=== PATIENT | female | born 1935 | race Caucasian/White ===

== ENCOUNTER 2018-05-22 21:04 | Inpatient (IN) | payer MEDICARE, OTHER ==
[2018-05-22] MEDS: morphine 4 MG/ML VIAL IV (22:24)
[2018-05-22] MEDS: ONDANSETRON 4 MG INJ IV (22:24)
[2018-05-22 22:29] LABS: ADD MAN DIFF? NO
[2018-05-22 22:30] LABS: BASOPHILS % 0.2 % (0.0-2.0); HEMATOCRIT 26.3 % (37.0-47.0); HEMOGLOBIN 7.9 g/dl (12.0-16.0); LYMPHOCYTES # 0.6 10^3/ul (0.8-2.9); LYMPHOCYTES % 3.6 % (15.0-51.0); MEAN CORPUSCULAR HEMOGLOBIN 25.7 pg (29.0-33.0); MEAN CORPUSCULAR VOLUME 85.7 fl (82.0-101.0); MEAN PLATELET VOLUME 9.9 fl (7.4-10.4); MONOCYTE # 0.7 10^3/ul (0.3-0.9); NEUTROPHIL # 15.4 10^3/ul (1.6-7.5); NEUTROPHILS % 91.5 % (39.0-77.0); PLATELET COUNT 639 10^3/UL (140-415); RED BLOOD COUNT 3.07 10^6/ul (4.20-5.40); RED CELL DISTRIBUTION WIDTH 14.8 % (11.5-14.5)
[2018-05-22 22:30] LABS: WHITE BLOOD COUNT 16.8 10^3/ul (4.8-10.8)
[2018-05-22 22:45] LABS: INR 1.02; PROTIME 13.5 Sec (11.9-14.9); PT RATIO 1.1
[2018-05-22 22:46] LABS: PARTIAL THROMBOPLASTIN TIME 40.8 Sec (25.0-35.0)
[2018-05-22 22:50] LABS: ALANINE AMINOTRANSFERASE 18 IU/L (13-69); ALBUMIN 3.9 g/dl (3.3-4.9); ALBUMIN/GLOBULIN RATIO 0.86; ALKALINE PHOSPHATASE 101 IU/L (42-121); ANION GAP 22 (8-16); ASPARTATE AMINO TRANSFERASE 11 IU/L (15-46); BILIRUBIN,INDIRECT 0.6 mg/dl (0-1.1); BILIRUBIN,TOTAL 0.6 mg/dl (0.2-1.3); BLOOD UREA NITROGEN 32 mg/dl (7-20); CALCIUM 9.8 mg/dl (8.4-10.2); CARBON DIOXIDE 16 mmol/L (21-31); CHLORIDE 103 mmol/L (97-110); CREATININE 2.02 mg/dl (0.44-1.00); GLUCOSE 220 mg/dl (70-220); POTASSIUM 5.5 mmol/L (3.5-5.1); SODIUM 135 mmol/L (135-144); TOTAL PROTEIN 8.4 g/dl (6.1-8.1)
[2018-05-22 23:02] LABS: TROPONIN-I 0.136 ng/ml (0.000-0.120)
[2018-05-23] MEDS ORDERED: ACETAMINOPHEN 325 MG TAB PO
[2018-05-23 00:05] LABS: ADD UMIC YES; UR ASCORBIC ACID NEGATIVE (NEGATIVE); UR BILIRUBIN (Dip) NEGATIVE (NEGATIVE); UR BLOOD (Dip) 2+ mg/dL (NEGATIVE); UR CLARITY CLEAR (CLEAR); UR COLOR YELLOW (YELLOW); UR GLUCOSE (Dip) 2+ mg/dL (NEGATIVE); UR KETONES (Dip) 1+ mg/dL (NEGATIVE); UR LEUKOCYTE ESTERASE (Dip) NEGATIVE Leu/ul (NEGATIVE); UR NITRITE (Dip) NEGATIVE (NEGATIVE); UR RBC 2 /HPF (0-5); UR SPECIFIC GRAVITY (Dip) 1.013 (1.003-1.030); UR TOTAL PROTEIN (Dip) 1+ mg/dl (NEGATIVE); UR UROBILINOGEN (Dip) NEGATIVE (NEGATIVE); UR WBC 1 /HPF (0-5)
[2018-05-23] MEDS: ASPIRIN 325 MG TAB PO (00:18)
[2018-05-23] MEDS ORDERED: NACL 0.9% 3 ML SYG IV (00:30)
[2018-05-23] MEDS ORDERED: NITROGLYCERIN (SL) 0.4 MG TAB SL (00:30)
[2018-05-23] MEDS ORDERED: ONDANSETRON 4 MG INJ IV ×2 (00:30)
[2018-05-23] MEDS ORDERED: GLUCOSE GEL 15 GRAM TUBE BUCCAL (01:00)
[2018-05-23] MEDS ORDERED: GLUCAGON 1 MG INJ IM (01:00)
[2018-05-23] MEDS ORDERED: GLUCOSE GEL 15 GRAM TUBE PO ×2 (01:00)
[2018-05-23] MEDS ORDERED: DEXTROSE 50% 50 ML SYRINGE IV ×2 (01:00)
[2018-05-23] MEDS: DEXTROSE 5%-0.45% NACL 1,000 ML IV ×2 (01:26→14:41)
[2018-05-23 01:41] LABS: CREATINE KINASE 118 IU/L (23-200)
[2018-05-23] MEDS: morphine 2 MG INJ IV ×2 (01:50→06:26)
[2018-05-23 01:53] LABS: CK INDEX 1.7; CK-MB 1.95 ng/ml (0.0-2.4)
[2018-05-23 01:56] LABS: TROPONIN-I 0.233 ng/ml (0.000-0.120)
[2018-05-23] MEDS: ACCU-CHEK XX (02:00)
[2018-05-23] MEDS: CEFTRIAXONE 1 GM/50 ML (PMX) 50 ML IVPB ×3 (02:30→21:10)
[2018-05-23 03:40] LABS: ADD MAN DIFF? NO
[2018-05-23 04:01] LABS: INR 1.04; PROTIME 13.7 Sec (11.9-14.9); PT RATIO 1.1
[2018-05-23 04:02] LABS: ABNORMAL IP MESSAGE 1; BASOPHILS % 0.2 % (0.0-2.0); HEMATOCRIT 22.2 % (37.0-47.0); LYMPHOCYTES # 0.7 10^3/ul (0.8-2.9); LYMPHOCYTES % 4.9 % (15.0-51.0); MEAN CORPUSCULAR HEMOGLOBIN 25.9 pg (29.0-33.0); MEAN CORPUSCULAR HGB CONC 30.2 g/dl (32.0-37.0); MEAN CORPUSCULAR VOLUME 85.7 fl (82.0-101.0); MEAN PLATELET VOLUME 10.8 fl (7.4-10.4); MONOCYTE # 0.6 10^3/ul (0.3-0.9); MONOCYTES % 4.2 % (0.0-11.0); NEUTROPHIL # 13.2 10^3/ul (1.6-7.5); NEUTROPHILS % 89.7 % (39.0-77.0); PARTIAL THROMBOPLASTIN TIME 35.2 Sec (25.0-35.0); PLATELET COUNT 480 10^3/UL (140-415); RED BLOOD COUNT 2.59 10^6/ul (4.20-5.40); RED CELL DISTRIBUTION WIDTH 14.7 % (11.5-14.5)
[2018-05-23 04:02] LABS: WHITE BLOOD COUNT 14.7 10^3/ul (4.8-10.8)
[2018-05-23] MEDS: HEPARIN 1000 UNITS/ML 10 ML INJ IV ×2 (04:09→04:15)
[2018-05-23] MEDS: HEPARIN 25000 UNITS/250 ML 250 ML IV (04:11)
[2018-05-23 04:32] LABS: HEMOGLOBIN 6.7 g/dl (12.0-16.0); POSITIVE DIFF @See below
[2018-05-23 04:33] LABS: PATH REVIEW? YES-PATH TO CONFIRM
[2018-05-23 07:04] LABS: ADD MAN DIFF? NO
[2018-05-23 07:12] LABS: WHITE BLOOD COUNT 14.2 10^3/ul (4.8-10.8)
[2018-05-23 07:12] LABS: ABNORMAL IP MESSAGE 1; BASOPHILS % 0.3 % (0.0-2.0); HEMATOCRIT 22.4 % (37.0-47.0); LYMPHOCYTES # 1.1 10^3/ul (0.8-2.9); LYMPHOCYTES % 7.8 % (15.0-51.0); MEAN CORPUSCULAR HEMOGLOBIN 25.7 pg (29.0-33.0); MEAN CORPUSCULAR HGB CONC 29.9 g/dl (32.0-37.0); MEAN CORPUSCULAR VOLUME 85.8 fl (82.0-101.0); MEAN PLATELET VOLUME 11.1 fl (7.4-10.4); MONOCYTE # 0.6 10^3/ul (0.3-0.9); MONOCYTES % 4.5 % (0.0-11.0); NEUTROPHIL # 12.3 10^3/ul (1.6-7.5); NEUTROPHILS % 86.8 % (39.0-77.0); PLATELET COUNT 559 10^3/UL (140-415); RED BLOOD COUNT 2.61 10^6/ul (4.20-5.40)
[2018-05-23 07:25] LABS: HEMOGLOBIN 6.7 g/dl (12.0-16.0); POSITIVE DIFF @See below
[2018-05-23 07:34] LABS: ALANINE AMINOTRANSFERASE 15 IU/L (13-69); ALBUMIN 3.5 g/dl (3.3-4.9); ALBUMIN/GLOBULIN RATIO 1.09; ALKALINE PHOSPHATASE 83 IU/L (42-121); ANION GAP 26 (8-16); ASPARTATE AMINO TRANSFERASE 10 IU/L (15-46); BILIRUBIN,INDIRECT 0.3 mg/dl (0-1.1); BILIRUBIN,TOTAL 0.3 mg/dl (0.2-1.3); BLOOD UREA NITROGEN 36 mg/dl (7-20); CALCIUM 9.3 mg/dl (8.4-10.2); CARBON DIOXIDE 16 mmol/L (21-31); CHLORIDE 100 mmol/L (97-110); CHOL/HDL RATIO 7.8 RATIO; CHOLESTEROL 213 mg/dl (100-200); CREATINE KINASE 86 IU/L (23-200); CREATININE 1.94 mg/dl (0.44-1.00); GLUCOSE 217 mg/dl (70-220); HDL CHOLESTEROL 27 mg/dl (33-92); LDL CHOLESTEROL,CALCULATED 151 mg/dl; SODIUM 136 mmol/L (135-144); TOTAL PROTEIN 6.7 g/dl (6.1-8.1); TRIGLYCERIDES 174 mg/dl (0-149)
[2018-05-23 07:41] LABS: POTASSIUM 5.9 mmol/L (3.5-5.1)
[2018-05-23 07:42] LABS: IRON 14 ug/dl (35-150)
[2018-05-23 07:47] LABS: CK INDEX 2.4; CK-MB 2.04 ng/ml (0.0-2.4)
[2018-05-23 07:49] LABS: HEMOGLOBIN A1C 6.4 % (0-5.9)
[2018-05-23] MEDS: PANTOPRAZOLE 40 MG INJ IV ×2 (07:51→17:27)
[2018-05-23 07:52] LABS: % IRON SATURATION 7 % SAT (22-52); TOTAL IRON BINDING CAPACITY 191 ug/dl (241-421); TROPONIN-I 0.372 ng/ml (0.000-0.120)
[2018-05-23 08:09] LABS: IMMEDIATE SPIN CROSSMATCH 1 5
[2018-05-23] MEDS: AMLODIPINE 10 MG TAB PO (08:27)
[2018-05-23] MEDS: BENAZEPRIL 20 MG TAB PO (08:27)
[2018-05-23] MEDS: FAMOTIDINE 20 MG INJ IV (08:27)
[2018-05-23] MEDS: INSULIN ASPART [NOVOLOG] 3 ML PEN SC ×4 (08:28→21:00)
[2018-05-23] MEDS: INSULIN DETEMIR [LEVEMIR] 3ML CART SC (08:30)
[2018-05-23] MEDS ORDERED: HEPARIN 5,000 UNIT/0.5 ML VIAL SC (09:00)
[2018-05-23 11:40] LABS: PARTIAL THROMBOPLASTIN TIME 35.1 Sec (25.0-35.0)
[2018-05-23 13:14] LABS: ADD UMIC YES; UR AMORPHOUS CRYSTAL FEW /HPF (NONE SEEN); UR ASCORBIC ACID NEGATIVE (NEGATIVE); UR BACTERIA FEW /HPF (NONE SEEN); UR BILIRUBIN (Dip) NEGATIVE (NEGATIVE); UR BLOOD (Dip) 1+ mg/dL (NEGATIVE); UR CLARITY CLOUDY (CLEAR); UR COLOR AMBER (YELLOW); UR GLUCOSE (Dip) NEGATIVE (NEGATIVE); UR KETONES (Dip) TRACE mg/dL (NEGATIVE); UR LEUKOCYTE ESTERASE (Dip) 2+ Leu/ul (NEGATIVE); UR MUCUS FEW /HPF (NONE SEEN); UR NITRITE (Dip) NEGATIVE (NEGATIVE); UR RBC 1 /HPF (0-5); UR SPECIFIC GRAVITY (Dip) 1.021 (1.003-1.030); UR SQUAMOUS EPITHELIAL CELL FEW /HPF (FEW); UR TOTAL PROTEIN (Dip) 2+ mg/dl (NEGATIVE); UR UROBILINOGEN (Dip) NEGATIVE (NEGATIVE); UR WBC 120 /HPF (0-5)
[2018-05-23 13:27] LABS: CREATININE,URINE RANDOM 197.47 mg/dl (20-320)
[2018-05-23 13:27] LABS: SODIUM,URINE RANDOM 39 mmol/L (30-90)
[2018-05-23] MEDS ORDERED: PENDING SANTYL ORDER FOR WOUND CARE XX (16:00)
[2018-05-23 16:50] LABS: ANION GAP 16 (8-16); BLOOD UREA NITROGEN 37 mg/dl (7-20); CARBON DIOXIDE 19 mmol/L (21-31); CHLORIDE 105 mmol/L (97-110); CREATININE 2.07 mg/dl (0.44-1.00); GLUCOSE 203 mg/dl (70-220); SODIUM 135 mmol/L (135-144)
[2018-05-23] MEDS: BALSAM PERU/CASTOR OIL 60 GM TUBE TOP (21:00)
[2018-05-23] MEDS: ATORVASTATIN 80 MG TAB PO (21:00)
[2018-05-24] MEDS: DEXTROSE 5%-0.45% NACL 1,000 ML IV ×2 (01:24→05:07)
[2018-05-24] MEDS: ACCU-CHEK XX (02:00)
[2018-05-24] MEDS: hydrALAzine 20 MG INJ IV ×3 (03:44→23:36)
[2018-05-24] MEDS: HYDROmorphONE 0.5 MG/0.5 ML SYG IV ×4 (03:44→23:55)
[2018-05-24] MEDS: PANTOPRAZOLE 40 MG INJ IV ×2 (05:44→17:31)
[2018-05-24 07:17] LABS: ADD MAN DIFF? NO
[2018-05-24 07:29] LABS: INR 1.03; PROTIME 13.6 Sec (11.9-14.9); PT RATIO 1.1
[2018-05-24 07:34] LABS: BASOPHILS % 0.2 % (0.0-2.0); EOSINOPHILS % 0.2 % (0.0-7.0); HEMATOCRIT 31.7 % (37.0-47.0); HEMOGLOBIN 10.2 g/dl (12.0-16.0); LYMPHOCYTES # 0.7 10^3/ul (0.8-2.9); LYMPHOCYTES % 5.6 % (15.0-51.0); MEAN CORPUSCULAR HEMOGLOBIN 26.5 pg (29.0-33.0); MEAN CORPUSCULAR HGB CONC 32.2 g/dl (32.0-37.0); MEAN CORPUSCULAR VOLUME 82.3 fl (82.0-101.0); MEAN PLATELET VOLUME 10.9 fl (7.4-10.4); MONOCYTE # 0.6 10^3/ul (0.3-0.9); MONOCYTES % 4.7 % (0.0-11.0); NEUTROPHIL # 11.3 10^3/ul (1.6-7.5); NEUTROPHILS % 88.7 % (39.0-77.0); PLATELET COUNT 534 10^3/UL (140-415); RED BLOOD COUNT 3.85 10^6/ul (4.20-5.40); RED CELL DISTRIBUTION WIDTH 15.5 % (11.5-14.5)
[2018-05-24 07:34] LABS: WHITE BLOOD COUNT 12.7 10^3/ul (4.8-10.8)
[2018-05-24 07:40] LABS: CREATINE KINASE 82 IU/L (23-200)
[2018-05-24 07:45] LABS: ALANINE AMINOTRANSFERASE 14 IU/L (13-69); ALBUMIN 3.5 g/dl (3.3-4.9); ALBUMIN/GLOBULIN RATIO 0.97; ALKALINE PHOSPHATASE 87 IU/L (42-121); ANION GAP 20 (8-16); ASPARTATE AMINO TRANSFERASE 11 IU/L (15-46); BILIRUBIN,INDIRECT 0.3 mg/dl (0-1.1); BILIRUBIN,TOTAL 0.3 mg/dl (0.2-1.3); BLOOD UREA NITROGEN 33 mg/dl (7-20); CALCIUM 9.1 mg/dl (8.4-10.2); CARBON DIOXIDE 18 mmol/L (21-31); CHLORIDE 102 mmol/L (97-110); CREATININE 1.86 mg/dl (0.44-1.00); GLUCOSE 250 mg/dl (70-220); MAGNESIUM 1.8 mg/dl (1.7-2.5); POTASSIUM 4.6 mmol/L (3.5-5.1); SODIUM 135 mmol/L (135-144); TOTAL PROTEIN 7.1 g/dl (6.1-8.1)
[2018-05-24 07:52] LABS: CK INDEX 1.6
[2018-05-24 07:56] LABS: TROPONIN-I 0.212 ng/ml (0.000-0.120)
[2018-05-24 08:14] LABS: CHOLESTEROL 209 mg/dl (100-200)
[2018-05-24 08:14] LABS: HDL CHOLESTEROL 23 mg/dl (33-92); LDL CHOLESTEROL,CALCULATED 139 mg/dl; TRIGLYCERIDES 234 mg/dl (0-149)
[2018-05-24 08:15] LABS: PHOSPHORUS 3.6 mg/dl (2.5-4.9)
[2018-05-24 08:23] LABS: B-TYPE NATRIURETIC PEPTIDE 15100 PG/ML (0-450)
[2018-05-24] MEDS: FAMOTIDINE 20 MG INJ IV (08:34)
[2018-05-24] MEDS: BALSAM PERU/CASTOR OIL 60 GM TUBE TOP ×2 (08:35→21:00)
[2018-05-24] MEDS: INSULIN ASPART [NOVOLOG] 3 ML PEN SC ×4 (08:37→21:00)
[2018-05-24] MEDS: INSULIN DETEMIR [LEVEMIR] 3ML CART SC (08:48)
[2018-05-24 15:07] LABS: CREATININE, RANDOM URINE 213 mg/dL (20-320); MICROALBUMIN 16.6 mg/dL; MICROALBUMIN/CREATININE RATIO 78 (<30)
[2018-05-24] MEDS: ATORVASTATIN 80 MG TAB PO (21:12)
[2018-05-24] MEDS: LORAZEPAM 2 MG INJ IV (23:55)
[2018-05-25] MEDS: ACCU-CHEK XX (02:00)
[2018-05-25] MEDS: HYDROmorphONE 0.5 MG/0.5 ML SYG IV ×4 (04:30→21:48)
[2018-05-25] MEDS: hydrALAzine 20 MG INJ IV (04:31)
[2018-05-25] MEDS: PANTOPRAZOLE 40 MG INJ IV ×2 (05:31→17:34)
[2018-05-25] MEDS: DEXTROSE 5%-0.45% NACL 1,000 ML IV (06:36)
[2018-05-25] MEDS: INSULIN DETEMIR [LEVEMIR] 3ML CART SC (08:00)
[2018-05-25 08:16] LABS: ADD MAN DIFF? NO
[2018-05-25 08:17] LABS: WHITE BLOOD COUNT 10.7 10^3/ul (4.8-10.8)
[2018-05-25 08:17] LABS: BASOPHILS % 0.3 % (0.0-2.0); EOSINOPHILS % 0.4 % (0.0-7.0); HEMATOCRIT 36.8 % (37.0-47.0); HEMOGLOBIN 11.9 g/dl (12.0-16.0); LYMPHOCYTES # 0.8 10^3/ul (0.8-2.9); LYMPHOCYTES % 7.7 % (15.0-51.0); MEAN CORPUSCULAR HEMOGLOBIN 27.2 pg (29.0-33.0); MEAN CORPUSCULAR HGB CONC 32.3 g/dl (32.0-37.0); MEAN CORPUSCULAR VOLUME 84.2 fl (82.0-101.0); MEAN PLATELET VOLUME 10.7 fl (7.4-10.4); MONOCYTE # 0.6 10^3/ul (0.3-0.9); MONOCYTES % 5.8 % (0.0-11.0); NEUTROPHIL # 9.1 10^3/ul (1.6-7.5); NEUTROPHILS % 85.3 % (39.0-77.0); PLATELET COUNT 545 10^3/UL (140-415); RED BLOOD COUNT 4.37 10^6/ul (4.20-5.40); RED CELL DISTRIBUTION WIDTH 15.6 % (11.5-14.5)
[2018-05-25] MEDS: INSULIN ASPART [NOVOLOG] 3 ML PEN SC ×4 (09:00→22:11)
[2018-05-25] MEDS: FAMOTIDINE 20 MG INJ IV (09:01)
[2018-05-25] MEDS: BALSAM PERU/CASTOR OIL 60 GM TUBE TOP ×2 (09:02→21:49)
[2018-05-25 09:15] LABS: ANION GAP 20 (8-16); BLOOD UREA NITROGEN 30 mg/dl (7-20); CALCIUM 9.7 mg/dl (8.4-10.2); CARBON DIOXIDE 18 mmol/L (21-31); CHLORIDE 102 mmol/L (97-110); CREATININE 1.66 mg/dl (0.44-1.00); GLUCOSE 267 mg/dl (70-220); MAGNESIUM 1.8 mg/dl (1.7-2.5); POTASSIUM 4.8 mmol/L (3.5-5.1); SODIUM 135 mmol/L (135-144)
[2018-05-25] MEDS: ATORVASTATIN 80 MG TAB PO ×2 (21:00→21:50)
[2018-05-25] MEDS: HEPARIN 5,000 UNIT/0.5 ML VIAL SC (21:56)
[2018-05-25] MEDS: INSULIN GLARGINE [LANtus] 3 ML PEN SC (22:02)
[2018-05-26] MEDS: morphine LIQ (10 MG/5 ML) CUP PO ×2 (00:46→05:05)
[2018-05-26] MEDS: HYDROmorphONE 0.5 MG/0.5 ML SYG IV ×2 (02:14→06:51)
[2018-05-26] MEDS: ACCU-CHEK XX (02:16)
[2018-05-26] MEDS: hydrALAzine 20 MG INJ IV (03:50)
[2018-05-26] MEDS: PANTOPRAZOLE 40 MG INJ IV ×2 (05:05→17:18)
[2018-05-26] MEDS: SENNA TAB PO ×2 (08:49→21:37)
[2018-05-26] MEDS: FAMOTIDINE 20 MG INJ IV (08:49)
[2018-05-26] MEDS: INSULIN ASPART [NOVOLOG] 3 ML PEN SC ×4 (08:54→21:47)
[2018-05-26] MEDS: HEPARIN 5,000 UNIT/0.5 ML VIAL SC ×2 (08:54→21:45)
[2018-05-26] MEDS: BALSAM PERU/CASTOR OIL 60 GM TUBE TOP ×2 (09:00→21:00)
[2018-05-26 09:31] LABS: ADD MAN DIFF? NO
[2018-05-26 09:39] LABS: BASOPHILS % 0.3 % (0.0-2.0); EOSINOPHILS # 0.1 10^3/ul (0.0-0.5); EOSINOPHILS % 0.6 % (0.0-7.0); HEMATOCRIT 35.6 % (37.0-47.0); HEMOGLOBIN 11.2 g/dl (12.0-16.0); MEAN CORPUSCULAR HEMOGLOBIN 26.7 pg (29.0-33.0); MEAN CORPUSCULAR HGB CONC 31.5 g/dl (32.0-37.0); MEAN CORPUSCULAR VOLUME 84.8 fl (82.0-101.0); MONOCYTE # 0.6 10^3/ul (0.3-0.9); MONOCYTES % 7.3 % (0.0-11.0); NEUTROPHIL # 6.9 10^3/ul (1.6-7.5); NEUTROPHILS % 80.3 % (39.0-77.0); PLATELET COUNT 452 10^3/UL (140-415); RED CELL DISTRIBUTION WIDTH 15.9 % (11.5-14.5)
[2018-05-26 09:39] LABS: WHITE BLOOD COUNT 8.6 10^3/ul (4.8-10.8)
[2018-05-26 20:37] LABS: HEMATOCRIT 35.3 % (37.0-47.0); HEMOGLOBIN 11.5 g/dl (12.0-16.0)
[2018-05-26] MEDS: ATORVASTATIN 80 MG TAB PO (21:37)
[2018-05-26] MEDS: INSULIN GLARGINE [LANtus] 3 ML PEN SC (21:49)
[2018-05-27] MEDS: HYDROmorphONE 0.5 MG/0.5 ML SYG IV ×2 (02:39→08:45)
[2018-05-27] MEDS: ACCU-CHEK XX (02:55)
[2018-05-27] MEDS: PANTOPRAZOLE 40 MG INJ IV ×2 (05:10→18:34)
[2018-05-27] MEDS: INSULIN ASPART [NOVOLOG] 3 ML PEN SC ×5 (05:15→22:20)
[2018-05-27] MEDS ORDERED: SUGAMMADEX SODIUM 200 MG/2 ML VIAL IV (07:00)
[2018-05-27] MEDS ORDERED: hydrALAzine 20 MG INJ (07:00)
[2018-05-27] MEDS ORDERED: FENTAnyl 50 MCG/ML VIAL (07:00)
[2018-05-27] MEDS ORDERED: ETOMIDATE 20 MG INJ (07:00)
[2018-05-27] MEDS ORDERED: CEFAZOLIN 1 GM INJ (07:00)
[2018-05-27] MEDS ORDERED: MIDAZOLAM 1 MG/ML 2 ML INJ (07:00)
[2018-05-27] MEDS ORDERED: LIDOCAINE 2% (SDV) 5 ML INJ (07:00)
[2018-05-27] MEDS ORDERED: LABETALOL 100MG INJ (07:00)
[2018-05-27] MEDS ORDERED: ONDANSETRON 4 MG INJ (07:00)
[2018-05-27] MEDS ORDERED: FLUMAZENIL 0.5 MG INJ (07:00)
[2018-05-27] MEDS ORDERED: ROCURONIUM 50 MG INJ (07:00)
[2018-05-27] MEDS ORDERED: FAMOTIDINE 20 MG INJ (07:00)
[2018-05-27 08:37] LABS: ADD MAN DIFF? NO
[2018-05-27] MEDS: SENNA TAB PO ×2 (08:37→21:00)
[2018-05-27] MEDS: HEPARIN 5,000 UNIT/0.5 ML VIAL SC (08:38)
[2018-05-27 08:40] LABS: WHITE BLOOD COUNT 8.7 10^3/ul (4.8-10.8)
[2018-05-27 08:40] LABS: BASOPHILS % 0.3 % (0.0-2.0); EOSINOPHILS # 0.1 10^3/ul (0.0-0.5); EOSINOPHILS % 1.2 % (0.0-7.0); HEMATOCRIT 34.4 % (37.0-47.0); LYMPHOCYTES # 1.3 10^3/ul (0.8-2.9); LYMPHOCYTES % 15.4 % (15.0-51.0); MEAN CORPUSCULAR HEMOGLOBIN 27.2 pg (29.0-33.0); MEAN CORPUSCULAR VOLUME 85.1 fl (82.0-101.0); MEAN PLATELET VOLUME 10.2 fl (7.4-10.4); MONOCYTE # 0.8 10^3/ul (0.3-0.9); MONOCYTES % 9.2 % (0.0-11.0); NEUTROPHIL # 6.4 10^3/ul (1.6-7.5); NEUTROPHILS % 73.3 % (39.0-77.0); PLATELET COUNT 469 10^3/UL (140-415); RED BLOOD COUNT 4.04 10^6/ul (4.20-5.40); RED CELL DISTRIBUTION WIDTH 15.9 % (11.5-14.5)
[2018-05-27] MEDS: FAMOTIDINE 20 MG INJ IV (08:45)
[2018-05-27 08:54] LABS: ANION GAP 18 (8-16); BLOOD UREA NITROGEN 35 mg/dl (7-20); CALCIUM 9.7 mg/dl (8.4-10.2); CARBON DIOXIDE 19 mmol/L (21-31); CHLORIDE 103 mmol/L (97-110); CREATININE 1.66 mg/dl (0.44-1.00); GLUCOSE 156 mg/dl (70-220); MAGNESIUM 1.9 mg/dl (1.7-2.5); PHOSPHORUS 3.8 mg/dl (2.5-4.9); POTASSIUM 4.4 mmol/L (3.5-5.1); SODIUM 136 mmol/L (135-144)
[2018-05-27] MEDS: BALSAM PERU/CASTOR OIL 60 GM TUBE TOP ×2 (12:13→21:00)
[2018-05-27 12:47] LABS: PROCALCITONIN 0.75 ng/mL (<0.10)
[2018-05-27] MEDS ORDERED: ENOXAPARIN 40 MG/0.4 ML SYG SC (18:00)
[2018-05-27] MEDS ORDERED: CEFAZOLIN 1 GM/50 ML (PMX) 50 ML IVPB (18:00)
[2018-05-27] MEDS: DEXTROSE 5%-LR 1,000 ML IV (18:40)
[2018-05-27] MEDS: ATORVASTATIN 80 MG TAB PO (21:00)
[2018-05-27] MEDS: INSULIN GLARGINE [LANtus] 3 ML PEN SC (22:13)
[2018-05-27] MEDS: morphine 2 MG INJ IV (23:05)
[2018-05-28] MEDS: ACCU-CHEK XX (02:09)
[2018-05-28] MEDS: CEFAZOLIN 1 GM/50 ML (PMX) 50 ML IVPB ×2 (02:22→14:11)
[2018-05-28] MEDS: INSULIN ASPART [NOVOLOG] 3 ML PEN SC ×6 (02:27→20:35)
[2018-05-28] MEDS: morphine 2 MG INJ IV ×3 (02:29→22:12)
[2018-05-28] MEDS: DEXTROSE 5%-LR 1,000 ML IV (04:53)
[2018-05-28] MEDS: PANTOPRAZOLE 40 MG INJ IV ×2 (05:06→17:26)
[2018-05-28 07:28] LABS: ADD MAN DIFF? NO
[2018-05-28 07:36] LABS: WHITE BLOOD COUNT 7.6 10^3/ul (4.8-10.8)
[2018-05-28 07:36] LABS: ABNORMAL IP MESSAGE 1; BASOPHILS % 0.1 % (0.0-2.0); HEMATOCRIT 32.5 % (37.0-47.0); HEMOGLOBIN 10.3 g/dl (12.0-16.0); LYMPHOCYTES # 0.4 10^3/ul (0.8-2.9); LYMPHOCYTES % 5.7 % (15.0-51.0); MEAN CORPUSCULAR HEMOGLOBIN 27.2 pg (29.0-33.0); MEAN CORPUSCULAR HGB CONC 31.7 g/dl (32.0-37.0); MONOCYTE # 0.5 10^3/ul (0.3-0.9); MONOCYTES % 6.2 % (0.0-11.0); NEUTROPHIL # 6.6 10^3/ul (1.6-7.5); NEUTROPHILS % 87.6 % (39.0-77.0); PLATELET COUNT 429 10^3/UL (140-415); RED BLOOD COUNT 3.78 10^6/ul (4.20-5.40); RED CELL DISTRIBUTION WIDTH 15.8 % (11.5-14.5)
[2018-05-28 07:45] LABS: POSITIVE DIFF @See below
[2018-05-28 07:57] LABS: ANION GAP 16 (8-16); BLOOD UREA NITROGEN 33 mg/dl (7-20); CALCIUM 9.5 mg/dl (8.4-10.2); CARBON DIOXIDE 21 mmol/L (21-31); CHLORIDE 103 mmol/L (97-110); CREATININE 1.66 mg/dl (0.44-1.00); GLUCOSE 285 mg/dl (70-220); MAGNESIUM 1.7 mg/dl (1.7-2.5); POTASSIUM 4.8 mmol/L (3.5-5.1); SODIUM 135 mmol/L (135-144)
[2018-05-28] MEDS: SENNA TAB PO ×2 (08:59→20:31)
[2018-05-28] MEDS: FAMOTIDINE 20 MG INJ IV (08:59)
[2018-05-28] MEDS: BALSAM PERU/CASTOR OIL 60 GM TUBE TOP ×2 (09:06→20:37)
[2018-05-28] MEDS: ENOXAPARIN 40 MG/0.4 ML SYG SC (09:15)
[2018-05-28] MEDS: ATORVASTATIN 80 MG TAB PO (20:31)
[2018-05-28] MEDS: INSULIN GLARGINE [LANtus] 3 ML PEN SC (20:34)
[2018-05-29] MEDS: ACCU-CHEK XX (02:00)
[2018-05-29] MEDS: INSULIN ASPART [NOVOLOG] 3 ML PEN SC ×5 (02:09→21:22)
[2018-05-29] MEDS: DEXTROSE 5%-LR 1,000 ML IV (03:18)
[2018-05-29] MEDS: PANTOPRAZOLE 40 MG INJ IV ×2 (05:55→17:25)
[2018-05-29] MEDS: morphine 2 MG INJ IV ×2 (05:55→11:27)
[2018-05-29 06:12] LABS: ADD MAN DIFF? NO
[2018-05-29 06:15] LABS: WHITE BLOOD COUNT 10.9 10^3/ul (4.8-10.8)
[2018-05-29 06:15] LABS: BASOPHILS % 0.2 % (0.0-2.0); EOSINOPHILS # 0.1 10^3/ul (0.0-0.5); EOSINOPHILS % 0.6 % (0.0-7.0); HEMOGLOBIN 9.5 g/dl (12.0-16.0); LYMPHOCYTES # 1.2 10^3/ul (0.8-2.9); MEAN CORPUSCULAR HEMOGLOBIN 27.5 pg (29.0-33.0); MEAN CORPUSCULAR HGB CONC 31.7 g/dl (32.0-37.0); MEAN CORPUSCULAR VOLUME 86.7 fl (82.0-101.0); MEAN PLATELET VOLUME 10.4 fl (7.4-10.4); MONOCYTES % 8.7 % (0.0-11.0); NEUTROPHIL # 8.6 10^3/ul (1.6-7.5); NEUTROPHILS % 79.1 % (39.0-77.0); PLATELET COUNT 436 10^3/UL (140-415); RED BLOOD COUNT 3.46 10^6/ul (4.20-5.40); RED CELL DISTRIBUTION WIDTH 15.9 % (11.5-14.5)
[2018-05-29 07:02] LABS: ANION GAP 14 (8-16); BLOOD UREA NITROGEN 32 mg/dl (7-20); CALCIUM 9.6 mg/dl (8.4-10.2); CARBON DIOXIDE 21 mmol/L (21-31); CHLORIDE 107 mmol/L (97-110); CREATININE 1.64 mg/dl (0.44-1.00); GLUCOSE 133 mg/dl (70-220); MAGNESIUM 1.7 mg/dl (1.7-2.5); PHOSPHORUS 3.3 mg/dl (2.5-4.9); POTASSIUM 4.4 mmol/L (3.5-5.1); SODIUM 138 mmol/L (135-144)
[2018-05-29] MEDS: FAMOTIDINE 20 MG INJ IV (08:46)
[2018-05-29] MEDS: SENNA TAB PO ×2 (08:46→21:14)
[2018-05-29] MEDS: BALSAM PERU/CASTOR OIL 60 GM TUBE TOP ×2 (08:49→21:15)
[2018-05-29] MEDS: ENOXAPARIN 40 MG/0.4 ML SYG SC (08:59)
[2018-05-29] MEDS: hydrALAzine 20 MG INJ IV (13:29)
[2018-05-29] MEDS: CLONIDINE 0.1 MG/24 HR PATCH TRANSDERM (15:20)
[2018-05-29] MEDS: ATORVASTATIN 80 MG TAB PO (21:14)
[2018-05-29] MEDS: LORAZEPAM 2 MG INJ IV (21:19)
[2018-05-29] MEDS: HYDROCODONE/APAP (5/325) TAB PO (21:19)
[2018-05-29] MEDS: INSULIN GLARGINE [LANtus] 3 ML PEN SC (21:22)
[2018-05-30] MEDS: ACCU-CHEK XX (02:10)
[2018-05-30] MEDS: PANTOPRAZOLE 40 MG INJ IV ×2 (06:19→17:32)
[2018-05-30] MEDS: SENNA TAB PO ×2 (08:24→21:23)
[2018-05-30] MEDS: ENOXAPARIN 40 MG/0.4 ML SYG SC (08:25)
[2018-05-30] MEDS: INSULIN ASPART [NOVOLOG] 3 ML PEN SC ×4 (08:26→21:33)
[2018-05-30] MEDS: BALSAM PERU/CASTOR OIL 60 GM TUBE TOP ×2 (08:26→21:25)
[2018-05-30 09:45] LABS: ANION GAP 14 (8-16); BLOOD UREA NITROGEN 32 mg/dl (7-20); CALCIUM 9.5 mg/dl (8.4-10.2); CARBON DIOXIDE 22 mmol/L (21-31); CHLORIDE 103 mmol/L (97-110); CREATININE 1.66 mg/dl (0.44-1.00); GLUCOSE 150 mg/dl (70-220); MAGNESIUM 1.7 mg/dl (1.7-2.5); POTASSIUM 4.1 mmol/L (3.5-5.1); SODIUM 135 mmol/L (135-144)
[2018-05-30] MEDS: HYDROCODONE/APAP (5/325) TAB PO (12:40)
[2018-05-30] MEDS ORDERED: morphine LIQ (10 MG/5 ML) CUP PO (16:30)
[2018-05-30] MEDS: D5W-0.45 NACL + KCL 20 MEQ 1,000 ML IV (17:32)
[2018-05-30] MEDS: ATORVASTATIN 80 MG TAB PO (21:23)
[2018-05-30] MEDS: INSULIN GLARGINE [LANtus] 3 ML PEN SC (21:32)
[2018-05-31] MEDS: ACCU-CHEK XX (02:40)
[2018-05-31] MEDS: PANTOPRAZOLE 40 MG INJ IV ×2 (05:45→18:57)
[2018-05-31] MEDS: D5W-0.45 NACL + KCL 20 MEQ 1,000 ML IV (07:18)
[2018-05-31] MEDS: INSULIN ASPART [NOVOLOG] 3 ML PEN SC ×5 (07:30→20:43)
[2018-05-31] MEDS: BALSAM PERU/CASTOR OIL 60 GM TUBE TOP ×2 (09:00→20:33)
[2018-05-31 09:02] LABS: ADD MAN DIFF? NO
[2018-05-31 09:08] LABS: BASOPHILS % 0.2 % (0.0-2.0); EOSINOPHILS # 0.1 10^3/ul (0.0-0.5); EOSINOPHILS % 0.6 % (0.0-7.0); HEMATOCRIT 26.5 % (37.0-47.0); HEMOGLOBIN 8.4 g/dl (12.0-16.0); LYMPHOCYTES # 1.1 10^3/ul (0.8-2.9); LYMPHOCYTES % 12.7 % (15.0-51.0); MEAN CORPUSCULAR HEMOGLOBIN 27.2 pg (29.0-33.0); MEAN CORPUSCULAR HGB CONC 31.7 g/dl (32.0-37.0); MEAN CORPUSCULAR VOLUME 85.8 fl (82.0-101.0); MEAN PLATELET VOLUME 11.3 fl (7.4-10.4); MONOCYTE # 0.7 10^3/ul (0.3-0.9); MONOCYTES % 7.9 % (0.0-11.0); NEUTROPHILS % 77.9 % (39.0-77.0); PLATELET COUNT 354 10^3/UL (140-415); RED BLOOD COUNT 3.09 10^6/ul (4.20-5.40); RED CELL DISTRIBUTION WIDTH 15.8 % (11.5-14.5)
[2018-05-31 09:31] LABS: ANION GAP 15 (8-16); BLOOD UREA NITROGEN 38 mg/dl (7-20); CALCIUM 8.9 mg/dl (8.4-10.2); CARBON DIOXIDE 22 mmol/L (21-31); CHLORIDE 100 mmol/L (97-110); CREATININE 1.52 mg/dl (0.44-1.00); GLUCOSE 183 mg/dl (70-220); POTASSIUM 4.2 mmol/L (3.5-5.1); SODIUM 133 mmol/L (135-144)
[2018-05-31] MEDS: SENNA TAB PO ×2 (09:33→20:32)
[2018-05-31] MEDS: MAGNESIUM HYDROXIDE 30ML CUP PO (09:34)
[2018-05-31] MEDS: ENOXAPARIN 30 MG/0.3 ML SYG SC (10:17)
[2018-05-31] MEDS: ALBUTEROL/IPRATROPIUM (NEB) 3 ML AMP HHN (16:52)
[2018-05-31] MEDS: ATORVASTATIN 80 MG TAB PO (20:32)
[2018-05-31] MEDS: INSULIN GLARGINE [LANtus] 3 ML PEN SC (20:42)
[2018-05-31] MEDS: HYDROCODONE/APAP (5/325) TAB PO (22:36)
[2018-06-01] MEDS: ACCU-CHEK XX (02:00)
[2018-06-01] MEDS: HYDROCODONE/APAP (5/325) TAB PO ×2 (03:13→10:09)
[2018-06-01 05:10] LABS: ADD MAN DIFF? NO
[2018-06-01 05:16] LABS: WHITE BLOOD COUNT 7.8 10^3/ul (4.8-10.8)
[2018-06-01 05:16] LABS: BASOPHILS % 0.3 % (0.0-2.0); EOSINOPHILS # 0.1 10^3/ul (0.0-0.5); EOSINOPHILS % 1.2 % (0.0-7.0); HEMATOCRIT 24.5 % (37.0-47.0); HEMOGLOBIN 7.7 g/dl (12.0-16.0); LYMPHOCYTES % 12.8 % (15.0-51.0); MEAN CORPUSCULAR HEMOGLOBIN 27.1 pg (29.0-33.0); MEAN CORPUSCULAR HGB CONC 31.4 g/dl (32.0-37.0); MEAN CORPUSCULAR VOLUME 86.3 fl (82.0-101.0); MEAN PLATELET VOLUME 10.9 fl (7.4-10.4); MONOCYTE # 0.6 10^3/ul (0.3-0.9); MONOCYTES % 8.2 % (0.0-11.0); PLATELET COUNT 321 10^3/UL (140-415); RED BLOOD COUNT 2.84 10^6/ul (4.20-5.40); RED CELL DISTRIBUTION WIDTH 15.7 % (11.5-14.5)
[2018-06-01 05:36] LABS: ANION GAP 12 (8-16); BLOOD UREA NITROGEN 35 mg/dl (7-20); CALCIUM 8.7 mg/dl (8.4-10.2); CARBON DIOXIDE 23 mmol/L (21-31); CHLORIDE 102 mmol/L (97-110); CREATININE 1.45 mg/dl (0.44-1.00); GLUCOSE 118 mg/dl (70-220); MAGNESIUM 1.6 mg/dl (1.7-2.5); PHOSPHORUS 2.6 mg/dl (2.5-4.9); POTASSIUM 4.2 mmol/L (3.5-5.1); SODIUM 133 mmol/L (135-144)
[2018-06-01] MEDS: PANTOPRAZOLE 40 MG INJ IV ×2 (06:23→18:24)
[2018-06-01] MEDS: INSULIN ASPART [NOVOLOG] 3 ML PEN SC ×7 (07:20→20:40)
[2018-06-01] MEDS: SENNA TAB PO ×2 (08:43→20:33)
[2018-06-01] MEDS: MAGNESIUM SULFATE 2 GM/50 ML 50 ML IVPB (10:07)
[2018-06-01] MEDS: ENOXAPARIN 30 MG/0.3 ML SYG SC (10:14)
[2018-06-01] MEDS: BALSAM PERU/CASTOR OIL 60 GM TUBE TOP ×2 (14:00→20:42)
[2018-06-01] MEDS: ATORVASTATIN 80 MG TAB PO (20:34)
[2018-06-01] MEDS: INSULIN GLARGINE [LANtus] 3 ML PEN SC (20:38)
[2018-06-01] MEDS: MAGNESIUM HYDROXIDE 30ML CUP PO (23:53)
[2018-06-02] MEDS: ACCU-CHEK XX ×2 (03:04→21:36)
[2018-06-02 05:06] LABS: ADD MAN DIFF? NO
[2018-06-02 05:13] LABS: WHITE BLOOD COUNT 5.4 10^3/ul (4.8-10.8)
[2018-06-02 05:13] LABS: ABNORMAL IP MESSAGE 1; BASOPHILS % 0.2 % (0.0-2.0); EOSINOPHILS # 0.1 10^3/ul (0.0-0.5); EOSINOPHILS % 1.5 % (0.0-7.0); HEMATOCRIT 40.5 % (37.0-47.0); HEMOGLOBIN 12.7 g/dl (12.0-16.0); LYMPHOCYTES # 0.4 10^3/ul (0.8-2.9); LYMPHOCYTES % 7.7 % (15.0-51.0); MEAN CORPUSCULAR HEMOGLOBIN 26.7 pg (29.0-33.0); MEAN CORPUSCULAR HGB CONC 31.4 g/dl (32.0-37.0); MEAN CORPUSCULAR VOLUME 85.3 fl (82.0-101.0); MEAN PLATELET VOLUME 10.8 fl (7.4-10.4); MONOCYTE # 0.4 10^3/ul (0.3-0.9); MONOCYTES % 8.1 % (0.0-11.0); NEUTROPHIL # 4.4 10^3/ul (1.6-7.5); NEUTROPHILS % 81.9 % (39.0-77.0); PLATELET COUNT 282 10^3/UL (140-415); RED BLOOD COUNT 4.75 10^6/ul (4.20-5.40); RED CELL DISTRIBUTION WIDTH 15.5 % (11.5-14.5)
[2018-06-02] MEDS: PANTOPRAZOLE 40 MG INJ IV ×2 (05:25→17:40)
[2018-06-02 05:45] LABS: POSITIVE DIFF @See below
[2018-06-02 06:43] LABS: BLOOD UREA NITROGEN 34 mg/dl (7-20); CARBON DIOXIDE 22 mmol/L (21-31); CHLORIDE 104 mmol/L (97-110); CREATININE 1.37 mg/dl (0.44-1.00); GLUCOSE 79 mg/dl (70-220); MAGNESIUM 2.3 mg/dl (1.7-2.5); PHOSPHORUS 2.6 mg/dl (2.5-4.9); SODIUM 135 mmol/L (135-144)
[2018-06-02] MEDS: INSULIN ASPART [NOVOLOG] 3 ML PEN SC ×7 (07:20→21:00)
[2018-06-02 07:40] LABS: ANION GAP 13 (8-16); POTASSIUM 4.4 mmol/L (3.5-5.1)
[2018-06-02] MEDS: BALSAM PERU/CASTOR OIL 60 GM TUBE TOP ×2 (08:13→20:36)
[2018-06-02] MEDS: SENNA TAB PO ×2 (09:17→21:00)
[2018-06-02] MEDS: ENOXAPARIN 30 MG/0.3 ML SYG SC (09:17)
[2018-06-02] MEDS: HYDROCODONE/APAP (5/325) TAB PO (16:04)
[2018-06-02] MEDS: ALBUTEROL/IPRATROPIUM (NEB) 3 ML AMP HHN (19:11)
[2018-06-02] MEDS: ATORVASTATIN 80 MG TAB PO (20:21)
[2018-06-02] MEDS: INSULIN GLARGINE [LANtus] 3 ML PEN SC (20:26)
[2018-06-03] MEDS: HYDROCODONE/APAP (5/325) TAB PO ×2 (00:34→12:51)
[2018-06-03] MEDS: ALBUTEROL/IPRATROPIUM (NEB) 3 ML AMP HHN ×2 (01:23→09:40)
[2018-06-03] MEDS: PANTOPRAZOLE 40 MG INJ IV (05:39)
[2018-06-03] MEDS: hydrALAzine 20 MG INJ IV (05:45)
[2018-06-03] MEDS: INSULIN ASPART [NOVOLOG] 3 ML PEN SC ×4 (07:20→11:40)
[2018-06-03] MEDS: SENNA TAB PO (08:38)
[2018-06-03] MEDS: BALSAM PERU/CASTOR OIL 60 GM TUBE TOP (08:39)
[2018-06-03] MEDS: ENOXAPARIN 30 MG/0.3 ML SYG SC (08:42)
== END 2018-06-03 16:05 | disposition hospice, home (50) | DRG 469 ==
LOC: MS4 23:51 → E/R 21:04 → MS1 05-31 22:55
PROC: 0SRS01A Replacement of Left Hip Joint, Femoral Surface with Metal Synthetic Substitute, Uncemented, Open Approach (ICD-10-PCS; principal; 2018-05-27 12:00)
PROC: 30233N1 Transfusion of Nonautologous Red Blood Cells into Peripheral Vein, Percutaneous Approach (ICD-10-PCS; 2018-05-27 13:45)
PROC: 0T9B70Z Drainage of Bladder with Drainage Device, Via Natural or Artificial Opening (ICD-10-PCS; 2018-05-27 13:45)
DX: S72.032A Displaced midcervical fracture of left femur, initial encounter for closed fracture (principal); I21.A1 Myocardial infarction type 2; C64.9 Malignant neoplasm of unspecified kidney, except renal pelvis; E87.2 Acidosis; N17.9 Acute kidney failure, unspecified; D62 Acute posthemorrhagic anemia; E87.1 Hypo-osmolality and hyponatremia; D72.829 Elevated white blood cell count, unspecified; D63.1 Anemia in chronic kidney disease; E87.5 Hyperkalemia; E11.22 Type 2 diabetes mellitus with diabetic chronic kidney disease; E78.5 Hyperlipidemia, unspecified; E83.42 Hypomagnesemia; I25.10 Atherosclerotic heart disease of native coronary artery without angina pectoris; I12.9 Hypertensive chronic kidney disease with stage 1 through stage 4 chronic kidney disease, or unspecified chronic kidney disease; N18.9 Chronic kidney disease, unspecified; R33.9 Retention of urine, unspecified; W01.0XXA Fall on same level from slipping, tripping and stumbling without subsequent striking against object, initial encounter; Z95.1 Presence of aortocoronary bypass graft; Z79.82 Long term (current) use of aspirin; Z79.4 Long term (current) use of insulin
CPT/HCPCS: 36415; 36430; 71045; 72170; 73500; 73510; 74176; 76775; 80048; 80053; 80061; 81001; 81003; 82043; 82550; 82553; 82728; 82962; 83036; 83540; 83735; 83880; 84100; 84145; 84155; 84300; 84439; 84443; 84484; 85014; 85018; 85025; 85610; 85730; 86850; 86900; 86901; 86920; 88104; 88305; 88311; 92610; 93005; 93306; 94640; 94664; 96374; 96375; 97110; 97163; 97530; 99285-25